=== PATIENT | male | born 1955 | race Caucasian/White ===

== ENCOUNTER 2016-04-02 21:32 | Emergency (ER) | payer OTHER ==
[~2016-04-02] VITALS: Ht 177.8 cm; Wt 81.6 kg
[~2016-04-02 21:32] MED LIST: ACETAMINOPHEN-1 EAC1 ORAL; CYCLOBENZAPRINE10 MG ORAL; FLEXERIL5 MG PO; MOTRIN800 MG PO; NEVIRAPINE200 MG PO; TRAMADOL HCL50 MG ORAL; TRUVADA1 TAB ORAL
[2016-04-02 21:52] VITALS: BP 154/93
[2016-04-02] MEDS ORDERED: Solu-MEDROL 125mg Inj IVP ONE (22:00)
[2016-04-02] MEDS ORDERED: Ipratropium 0.02% Inh Soln 2.5ml UD HHN ONE (22:00)
[2016-04-02] MEDS ORDERED: Albuterol ud Inhalation HHN ONE (22:00)
[2016-04-02 22:32] LABS: BASOPHILS % (AUTO) 1.2 % (0.0-2.0); EOSINOPHILS % (AUTO) 2.2 % (0.0-3.0); MEAN CORPUSCULAR HEMOGLOBIN 31.9 PG (27.0-31.0); MEAN CORPUSCULAR HGB CONC 34.5 G/DL (32.0-36.0); MEAN CORPUSCULAR VOLUME 92 FL (80-99); MEAN PLATELET VOLUME 8.9 FL (6.5-10.1); MONOCYTES % (AUTO) 8.4 % (1.0-10.0); NEUTROPHILS % (AUTO) 62.2 % (45.0-75.0); PLATELET COUNT 172 K/UL (150-450); RED BLOOD COUNT 4.64 M/UL (4.70-6.10); RED CELL DISTRIBUTION WIDTH 12.2 % (11.6-14.8); WHITE BLOOD COUNT 12.1 K/UL (4.8-10.8)
[2016-04-02 22:32] LABS: APPEARANCE,URINE CLEAR; KETONES,URINE NEGATIVE (NEGATIVE); LEUKOCYTE ESTERASE ,URINE 1+ (NEGATIVE); NITRITE,URINE NEGATIVE (NEGATIVE); PH,URINE 6 (4.5-8.0); PROTEIN,URINE 2+ (NEGATIVE); UROBILINOGEN,URINE 1 MG/DL (0.0-1.0)
--- NOTE | 2016-04-02 22:36 | Emergency Room Report ---
History of Present Illness General Chief Complaint: General Complaint Source: Patient Present Illness HPI Patient presents with cough and dyspnea this been on for many months. He is a smoker. This time he has fevers. Periods of time when he gets worse and better. Currently the phlegm is "ugly". There is no blood. In addition to that he's been having diarrhea. The diarrhea is explosive one time in the morning. He's been passing some blood also. He doesn't have diarrhea continue during the day. He's not been taking antibiotics. He does take anti-viral medication for HIV. He is being followed for this. He was sent by his doctor to get an x-ray. He's never used an inhaler before. He is heard himself wheezing. No NV, no chest pain, no extremity pain, rashes, SPANN. There is stress in his life. He has tried stopping smoking many times and has been unsuccessful. 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 Allergies: Coded Allergies: No Known Allergies (Unverified , 06/30/12) Patient History Past Medical History: see triage record Social History: Reports: alcohol use - prior, drug use - prior, smoking Social History Narrative at home by self with dog Reviewed Nursing Documentation: PMH: Agreed, PSxH: Agreed Nursing Documentation-PMH Past Medical History: No History, Except For Review of Systems All Other Systems: negative except mentioned in HPI Physical Exam Vital Signs Date Time Temp Pulse Resp B/P Pulse Ox O2 Delivery O2 Flow Rate FiO2 04/02/16 21:40 99.0 89 146/81 96 Room Air 04/02/16 21:52 15 04/02/16 22:10 21 Sp02 EP Interpretation: reviewed, normal General Appearance: well appearing, no apparent distress, GCS 15 Head: normocephalic Eyes: bilateral eye EOMI, bilateral eye PERRL, bilateral eye normal inspection ENT: moist mucus membranes Neck: supple Respiratory: wheezing, expiration, inspiration Cardiovascular #1: regular rate, rhythm Cardiovascular #2: 2+ radial (R) Gastrointestinal: normal inspection, normal bowel sounds, non tender, no mass, non-distended Musculoskeletal: back normal, gait/station normal, normal range of motion Neurologic: alert, oriented x3, grossly normal Psychiatric: mood/affect normal Skin: normal inspection, warm/dry Medical Decision Making Diagnostic Impression: Primary Impression: COPD exacerbation Additional Impression: HIV (human immunodeficiency virus infection) ER Course Patient with intermittent cough for several months with immune suppression. This is a complicated patient with a broad differential including pneumonia, TB , COPD, bronchitis, opportunistic infection, AMI amongst others. Immediate evaluation with BC, labs, EKG, CXR undertaken. Never treated with bronchodilators, but needs this. Also steroids initiated. Labs significant for leukocytosis. CXR with COPD. Flu negative. Improved with tx, but needs observation and antibiotics. Admit med Dr. Roland. Patient signed out after advisement of risk of as no one can take care of his dog. Told to return if he changes his mind. Labs Test 04/02/16 22:18 04/02/16 22:20 White Blood Count 12.1 K/UL (4.8-10.8) Red Blood Count 4.64 M/UL (4.70-6.10) Hemoglobin 14.8 G/DL (14.2-18.0) Hematocrit 42.8 % (42.0-52.0) Mean Corpuscular Volume 92 FL (80-99) Mean Corpuscular Hemoglobin 31.9 PG (27.0-31.0) Mean Corpuscular Hemoglobin Concent 34.5 G/DL (32.0-36.0) Red Cell Distribution Width 12.2 % (11.6-14.8) Platelet Count 172 K/UL (150-450) Mean Platelet Volume 8.9 FL (6.5-10.1) Neutrophils (%) (Auto) 62.2 % (45.0-75.0) Lymphocytes (%) (Auto) 26.0 % (20.0-45.0) Monocytes (%) (Auto) 8.4 % (1.0-10.0) Eosinophils (%) (Auto) 2.2 % (0.0-3.0) Basophils (%) (Auto) 1.2 % (0.0-2.0) Prothrombin Time 10.0 SEC (9.30-11.50) Prothromb Time International Ratio 1.0 (0.9-1.1) Activated Partial Thromboplast Time 35 SEC (23-33) Sodium Level 139 mEQ/L (135-145) Potassium Level 4.0 mEQ/L (3.4-4.9) Chloride Level 101 mEQ/L (98-107) Carbon Dioxide Level 23 mEQ/L (20-30) Anion Gap 15 (5-15) Blood Urea Nitrogen 14 mg/dL (7-23) Creatinine 0.9 mg/dL (0.7-1.2) Estimat Glomerular Filtration Rate > 60 mL/min (>60) Glucose Level 112 mg/dL (74-106) Lactic Acid Level 0.70 mmol/L (0.66-2.22) Calcium Level 8.8 mg/dL (8.6-10.2) Total Bilirubin 0.3 mg/dL (0.0-1.2) Aspartate Amino Transf (AST/SGOT) 16 U/L (5-40) Alanine Aminotransferase (ALT/SGPT) 15 U/L (3-41) Alkaline Phosphatase 85 U/L (40-129) Total Creatine Kinase 62 U/L (38-174) Troponin I < 0.30 ng/mL (<=0.30) Pro-B-Type Natriuretic Peptide 66 pg/mL (0-125) Total Protein 7.1 g/dL (6.6-8.7) Albumin 3.6 g/dL (3.5-5.2) Globulin 3.5 g/dL Albumin/Globulin Ratio 1.0 (1.0-2.7) Urine Color Yellow Urine Appearance Clear Urine pH 6 (4.5-8.0) Urine Specific [place] 1.020 (1.005-1.035) Urine Protein 2+ (NEGATIVE) Urine Glucose (UA) Negative (NEGATIVE) Urine Ketones Negative (NEGATIVE) Urine Occult Blood 3+ (NEGATIVE) Urine Nitrite Negative (NEGATIVE) Urine Bilirubin Negative (NEGATIVE) Urine Urobilinogen 1 MG/DL (0.0-1.0) Urine Leukocyte Esterase 1+ (NEGATIVE) Urine RBC 5-10 /HPF (0 - 0) Urine WBC 2-4 /HPF (0 - 0) Urine Squamous Epithelial Cells None /LPF (NONE/OCC) Urine Bacteria Few /HPF (NONE) EKG Diagnostic Results Rate: normal Rhythm: NSR ST Segments: no acute changes Rhythm Strip Diag. Results EP Interpretation: yes Rhythm: NSR, no PVC's, no ectopy Chest X-Ray Diagnostic Results EP Interpretation: Yes Findings: no consolidation, no effusion, no pneumothorax, other - COPD Number of Views: 1 Last Vital Signs Date Time Temp Pulse Resp B/P Pulse Ox O2 Delivery O2 Flow Rate FiO2 04/02/16 22:19 88 20 96 Room Air 21 04/02/16 21:52 99.3 154/93 Status: improved Disposition: AGAINST MEDICAL ADVICE Condition: Improved Scripts Azithromycin* (ZITHROMAX*) 250 Mg Tablet 250 MG ORAL DAILY, #4 TAB Prov: Jose Alfredo Jaramillo M.D. 04/03/16 Albuterol Sulfate* (ALBUTEROL SULFATE MDI*) 8.5 Gm Hfa.aer.ad 2 PUFF INH Q4H, #1 INH 0 Refills Prov: Jose Alfredo Jaramillo M.D. 04/03/16 Jose Alfredo Jaramillo M.D. Apr 02, 2016 22:36
[2016-04-02 22:40] LABS: BACTERIA,URINE FEW /HPF
[2016-04-02 22:48] LABS: TROPONIN I < 0.30 ng/mL (<=0.30)
[2016-04-02 22:51] LABS: ALANINE AMINOTRANSFERASE 15 U/L (3-41); ANION GAP 15 (5-15); ASPARTATE AMINO TRANSFERASE 16 U/L (5-40); CALCIUM 8.8 mg/dL (8.6-10.2); CARBON DIOXIDE 23 mEQ/L (20-30); CHLORIDE 101 mEQ/L (98-107); CREATININE 0.9 mg/dL (0.7-1.2); GLOMERULAR FILTRATION RATE > 60 mL/min (>60); HEMOLYSIS 37; SODIUM 139 mEQ/L (135-145); TOTAL PROTEIN 7.1 g/dL (6.6-8.7)
[2016-04-02 23:20] VITALS: BP 127/82
[2016-04-03] MEDS ORDERED: AZITHROMYCIN250 MG ORAL (00:43)
[2016-04-03] MEDS ORDERED: ALBUTEROL SULF8.5 GM INH (00:43)
[2016-04-03 00:45] VITALS: BP 127/82
[2016-04-03] MEDS ORDERED: Azithromycin 250mg tab ORAL ONE (00:45)
--- NOTE | 2016-04-03 09:23 | Diagnostic Imaging Report ---
Indications: Cough Technique: Portable AP chest Findings: Comparison: 02/20/2010 Cardiac silhouette remains normal in size. Pulmonary vasculature remains within normal limits. Lung volumes have increased bilaterally. Mild bibasilar interstitial prominence unchanged. Lungs and pleura remain otherwise clear. Mild calcification of the aortic arch again noted. IMPRESSION: No evidence of acute disease, unchanged Stable chronic changes as described
--- NOTE | 2016-04-03 21:28 | Cardiology Report ---
APPROVED REPORT EKG Measurement Heart [id number] Normal sinus rhythm Left axis deviation Abnormal ECG
== END 2016-04-03 01:02 | disposition left against medical advice (07) ==
LOC: EMR 22:16 → CANBEDREQ 04-03 00:51 → EMR 04-03 01:02
DX: J44.1 Chronic obstructive pulmonary disease with (acute) exacerbation (principal); B20 Human immunodeficiency virus [HIV] disease; F17.200 Nicotine dependence, unspecified, uncomplicated
CPT/HCPCS: 36415; 71010; 80053; 81003; 82550; 83605; 83880; 84484; 85025; 85610; 85730; 86710; 87040; 93005; 94640; 94664; 96374; 99284; J2930; Q0144

== ENCOUNTER 2017-03-18 03:23 | Emergency (ER) | payer OTHER ==
[~2017-03-18] VITALS: Ht 177.8 cm; Wt 83.5 kg
[~2017-03-18 03:23] MED LIST changes: +ALBUTEROL SULF8.5 GM INH; +AZITHROMYCIN250 MG ORAL
[2017-03-18 03:59] VITALS: BP 133/88
[2017-03-18] MEDS ORDERED: CLINDAMYCIN HC300 MG ORAL (04:13)
[2017-03-18] MEDS ORDERED: MUPIROCIN22 GM TOPIC (04:13)
--- NOTE | 2017-03-18 04:14 | Emergency Room Report ---
History of Present Illness General Chief Complaint: Animal Bite Source: Patient Present Illness HPI This is a 61-year-old male who is right-hand dominant. He has a history of HIV. He presents with chief complaint of swelling to his right hand. He thought he may been bitten by a spider. Woke up with the swelling and pain. Does redness. No other trauma. Denies any fever or chills. Said that he cannot take Bactrim Allergies: Coded Allergies: No Known Allergies (Unverified , 06/30/12) Patient History Past Medical History: see triage record, old chart reviewed, HIV Past Surgical History: none Pertinent Family History: none Social History: Denies: smoking Immunizations: other Reviewed Nursing Documentation: PMH: Agreed, PSxH: Agreed Review of Systems Eye: Denies: eye pain, blurred vision ENT: Denies: ear pain, nose congestion, throat swelling Respiratory: Denies: cough, shortness of breath Cardiovascular: Denies: chest pain, palpitations Gastrointestinal: Denies: abdominal pain, diarrhea, nausea, vomiting Musculoskeletal: Reports: muscle pain, Denies: back pain, joint pain Skin: Denies: rash Neurological: Denies: headache, numbness Endocrine: Denies: increased thirst, increased urine Hematologic/Lymphatic: Denies: easy bruising All Other Systems: negative except mentioned in HPI Physical Exam Vital Signs Date Time Temp Pulse Resp B/P (MAP) Pulse Ox O2 Delivery O2 Flow Rate FiO2 03/18/17 03:47 97.9 86 16 135/90 95 Room Air vitals normal Sp02 EP Interpretation: reviewed, normal General Appearance: well appearing, no apparent distress, alert Head: normocephalic, atraumatic Eyes: bilateral eye PERRL, bilateral eye EOMI ENT: hearing grossly normal, normal pharynx Neck: full range of motion, supple, no meningismus Respiratory: chest non-tender, lungs clear, normal breath sounds Cardiovascular #1: regular rate, rhythm, no murmur Gastrointestinal: normal bowel sounds, non tender, no mass, no organomegaly, no bruit, non-distended Musculoskeletal: back normal, gait/station normal, normal range of motion, other - Right hand: There is erythema in mild edema on the dorsal aspect of his hand between the thumb and index finger. No crepitance. Sensation normal. Full range of motion the wrist. Full range of motion of the fingers. Neurologic: alert, oriented x3 Psychiatric: mood/affect normal Skin: warm/dry Medical Decision Making Diagnostic Impression: Primary Impression: Cellulitis of right hand excluding fingers and thumb ER Course Patient with cellulitis of his hand. Most likely staph. No abscess. No necrotizing fasciitis. We'll discharge him Last Vital Signs Date Time Temp Pulse Resp B/P (MAP) Pulse Ox O2 Delivery O2 Flow Rate FiO2 03/18/17 03:59 97.9 88 16 133/88 98 Room Air Status: improved Disposition: HOME, SELF-CARE Condition: Stable Scripts Mupirocin* (MUPIROCIN*) 22 Gm Oint...g. 1 APPLIC TOPIC THREE TIMES A DAY, #22 GM Prov: BRIJESH MARI M.D. 03/18/17 Clindamycin Hcl (CLINDAMYCIN HCL) 300 Mg Capsule 300 MG ORAL THREE TIMES A DAY, #21 CAP Prov: BRIJESH MARI M.D. 03/18/17 Additional Instructions: Keep area clean. Clean with hydrogen peroxide and apply antibiotic ointment. Take antibiotics. Return if symptom worsen. Follow with your Dr. recheck in 2- 3 days. BRIJESH MARI M.D. Mar 18, 2017 04:13
[2017-03-18] MEDS ORDERED: Clindamycin 150mg cap ORAL ONE (04:15)
[2017-03-18 04:40] VITALS: BP 133/88
== END 2017-03-18 04:40 | disposition home or self-care (01) ==
LOC: EMR 04:08
DX: L03.113 Cellulitis of right upper limb (principal)
CPT/HCPCS: 99284